=== PATIENT | male | born 1990 | race Caucasian/White ===

== ENCOUNTER 2020-03-19 09:25 | Outpatient (NON) | payer OTHER, SELFPAY ==
[2020-03-20 01:35] LABS: SARS-CoV-2 RNA PCR Negative
== END 2020-03-19 09:26 ==
PROVIDERS: Visit Provider Physician Assistant
DX: Z20.828 Contact with and (suspected) exposure to other viral communicable diseases (principal); R50.9 Fever, unspecified
CPT/HCPCS: 87635; C9803; U0003

== ENCOUNTER 2020-09-28 09:01 | Outpatient (CLI) | payer BC, SELFPAY | END 2020-09-28 09:02 | disposition home or self-care (01) | LOC: ANHCOVIDVC 09:01 | PROVIDERS: PCP Family Medicine | DX: Z23 Encounter for immunization (principal) | CPT/HCPCS: 0001A; 91300 ==

== ENCOUNTER 2020-10-19 09:00 | Outpatient (CLI) | payer BC, SELFPAY | END 2020-10-19 09:01 | disposition home or self-care (01) | LOC: ANHCOVIDVC 09:01 | PROVIDERS: PCP Family Medicine | DX: Z23 Encounter for immunization (principal) | CPT/HCPCS: 0002A; 91300 ==

== ENCOUNTER → 2021-09-14 07:05 | Outpatient (CLI) | payer BC, SELFPAY ==
--- NOTE | ~2021-09-14 | XR_ITS ---
EXAMINATION: XR chest 2V EXAM DATE: 09/14/2021 07:28 INDICATION: R50.9 - Fever, unspecified. Central posterior T-sp pain, level of scapula, no trauma, co ugh and fever x months. TECHNIQUE: Frontal and lateral projections of the chest obtained and reviewed. Comparison is made to prior examination from 06/24/2015. FINDINGS: The lungs are clear. There are no pleural effusions. The cardiomediastinal silhouette is within normal limits. There is no pneumothorax suspected. The bones and soft tissues are unremarkab le. IMPRESSION: Unremarkable chest x-ray exam. Reviewed, dictated and finalized at location B.
--- NOTE | ~2021-09-14 | XR_ITS ---
EXAMINATION: XR thoracic spine 2V EXAM DATE: 09/14/2021 07:28 INDICATION: M54.6 - Pain in thoracic spine . TECHNIQUE: Frontal and lateral projections of the thoracic spine as well as lateral swimmers projecti on of the upper thoracic spine for interpretation. Comparison is made to prior examination from . FINDINGS: TECHNIQUE: Frontal and lateral projections of the thoracic spine as well as lateral swimmers projecti on of the upper thoracic spine for interpretation. Comparison is made to prior examination from . FINDINGS: Minimal upper thoracic levoscoliosis. The vertebral bodies are aligned in the AP dimensio n. Vertebral body and disc heights are well-maintained. There are no acute fractures identified. Ther e are no bony erosions identified. IMPRESSION: Minimal upper thoracic levoscoliosis. Otherwise unremarkable exam. Reviewed, dictated and finalized at location B.
== END ==
PROVIDERS: PCP Family Medicine; Visit Provider Family Medicine
DX: R50.9 Fever, unspecified (principal); R05.9 Cough, unspecified; M54.6 Pain in thoracic spine
CPT/HCPCS: 71046; 72070

== ENCOUNTER → 2021-09-20 14:50 | Outpatient (CLI) | payer BC, SELFPAY ==
--- NOTE | ~2021-09-20 | CT_ITS ---
EXAMINATION: CT sinus wo con DATE: 09/20/2021 15:07 INDICATION: Fever. Leukocytosis. Cough. TECHNIQUE: Computed tomography (CT) of the paranasal sinuses was performed without intravenous contra st. Iterative reconstruction technique was employed. The dose-length product was 272.93 mGy-cm. COMPARISON: Head CT 08/08/2014 FINDINGS: The frontal, ethmoid, sphenoid, and maxillary sinuses are clear. There is rightward deviati on of the nasal septum. There are bilateral Davion cells. IMPRESSION: 1. Rightward deviation of the nasal septum. Reviewed, dictated and finalized at location A.
== END ==
PROVIDERS: PCP Family Medicine; Visit Provider Family Medicine
DX: R05.9 Cough, unspecified (principal); R50.9 Fever, unspecified; R53.83 Other fatigue; J34.2 Deviated nasal septum
CPT/HCPCS: 70486

== ENCOUNTER 2022-07-04 07:09 | Emergency (ER) | payer BC, SELFPAY ==
[2022-07-04] VITALS (8 sets, daily range): BP systolic 103–119; BP diastolic 72–81; PULSE 71–81; RESP 13–23; TEMP 36.6; O2SAT 98–100
--- NOTE | ~2022-07-04 | XR_ITS ---
EXAMINATION: XR chest 2V 07/04/2022 08:01 INDICATION: Right-sided chest pain. Cough and shortness of breath. PROCEDURE: 2 view chest COMPARISON: Comparison to multiple prior studies sequentially, with oldest reviewed study dated 11/2015. FINDINGS: The lungs are clear. There is mild chronic right apical pleural thickening/scarring. The ca rdiomediastinal silhouette is within normal limits. There are no pleural effusions. There is no pne umothorax suspected. IMPRESSION: 1: NO ACUTE CARDIOPULMONARY DISEASE. Reviewed, dictated and finalized at location A. [facility]
--- NOTE | 2022-07-04 07:30 | ECG_ITS ---
Measurements Intervals [place] Rate: 74 P: 49 OK: 182 QRS: 11 QRSD: 100 T: 23 QT: 357 QTc: 397 Interpretive Statements SINUS RHYTHM INCOMPLETE RIGHT BUNDLE BRANCH BLOCK BASELINE ARTIFACT- I, II, AVR, AVL BORDERLINE ECG NO PREVIOUS ECG AVAILABLE FOR COMPARISON Electronically Signed On 07-04-2022 8:00:23 [employer] by Regan Segundo D.O.
--- NOTE | 2022-07-04 07:31 | ED.CHESTPAIN ---
HPI - Chest Pain General Chief Complaint: Chest Pain Stated Complaint: chest pain with cough Time Seen by Provider: 07/04/22 07:25 History of Present Illness HPI narrative: Pt presents with right sided CP intermittent for the last week or so. Pt says it started after vaping cannabis and coughing. Pt states now when he coughs or moves in certain ways it happens and eventually goes away after a few minutes. Pt denies fever, SOB, nausea. Related Data Allergies Allergy/AdvReac Type Severity Reaction Status Date / Time No Known Allergies Allergy Verified 09/30/21 08:59 Review of Systems Review of Systems: All systems reviewed & are unremarkable except as noted in HPI and below PMFSH Past Medical History Medical History H/O cannabis abuse Surgical History Surgical History History of tonsillectomy Family History Family History Father Hypertension Grandparent Hypertension Family history of lung cancer Family history of malignant neoplasm of breast in first degree relative Social History Social History (Updated 09/30/21 @ 09:05 by Veronica Shaw CMA) Tobacco type: e-cigarettes/vaping Second hand tobacco smoke exposure: No Alcohol intake: never Substance use: never Substance use type: does not use Gender identity (if verbalized by the patient): Male Sexual Orientation (if Verbalized by the Patient): Straight or Heterosexual Spiritual care concerns: No Agree to blood products: Yes Exam Const: General: healthy appearing and no acute distress Orientation/consciousness: patient oriented x3 Limitations: no limitations Neck: Neck: normal visual inspection Chest: Chest palpation & inspection: normal inspection of the chest and tenderness (no reproducible tenderness) Resp: Effort & Inspection: normal respiratory effort Auscultation: clear to auscultation bilaterally Cardio: Rate: regular rate Rhythm: regular rhythm GI: Auscultation: normal bowel sounds Skin: General skin exam: normal color Rashes: no rashes Neuro: General: patient oriented x3 and moves all extremities Cranial nerves: Yes Nystagmus not present Speech: normal speech Extrem: General: normal to inspection and no clubbing, cyanosis or edema Psych: Mental Status: mental status grossly normal Affect: normal affect Attitude: cooperative Course Course Emergency Course: labs and cxr and ekg look fine likely musculoskelatal, will presribe naprosyn and flexeril and discharge Vital Signs Vital signs: Vital Signs Temperature 97.8 F 07/04/22 07:13 Pulse Rate 76 07/04/22 07:13 Respiratory Rate 18 07/04/22 07:13 Blood Pressure 119/80 07/04/22 07:13 Pulse Oximetry 99 07/04/22 07:13 Oxygen Delivery Room Air 07/04/22 07:13 Temperature 97.8 F 07/04/22 07:13 Pulse Rate 81 07/04/22 08:46 Respiratory Rate 14 07/04/22 08:46 Blood Pressure 114/76 07/04/22 08:46 Pulse Oximetry 100 07/04/22 08:46 Oxygen Delivery Room Air 07/04/22 07:24 MDM - Chest Pain MDM Narrative Medical decision making narrative: given onset with coughing and coughin and movement being precipitating factors it seems most likely to be musculoskeletal and less likely cardiac or lung, but will order ekg and labs and cxr to be sure. if work up normal can discharge on antiinflammatories and muscle relaxers. Lab Data 07/04/22 07:47 07/04/22 07:47 Labs: Lab Results 07/04/22 07/04/22 Range/Units 07:47 07:47 WBC 9.8 (4.5-10.0) K/mm3 RBC 4.71 (4.6-6.20) M/mm3 Hgb 13.1 L (14.0-18.0) g/dL Hct 40.5 L (42.0-52.0) % MCV 86.0 (80-100) fl MCH 27.8 (26-34) pg MCHC 32.3 (32-36) g/dl RDW 12.7 (11.5-14.5) % Plt Count 339 (150-375) k/mm3 MPV 10.7 H (7.4-10.4) fl Immature Gran % (Auto
[2022-07-04 07:55] LABS: Basophils Percent Auto 0.3 % (0.2-1.2); Eosinophils Percent Auto 0.2 % (0-4.4); Hematocrit 40.5 % (42.0-52.0); Hemoglobin 13.1 g/dL (14.0-18.0); Immature Granulocyte Absolute 0.03 K/mm3 (0.00-0.031); Immature Granulocyte Percent A 0.3 % (0-0.5); Lymphocytes Percent Auto 16.3 % (18.3-44.2); Mean Corpuscular HGB Conc 32.3 g/dl (32-36); Mean Corpuscular Hemoglobin 27.8 pg (26-34); Mean Platelet Volume 10.7 fl (7.4-10.4); Monocytes Absolute Auto 0.8 K/mm3 (0.1-0.6); Monocytes Percent Auto 7.7 % (2.6-8.5); Neutrophils Absolute Auto 7.4 K/mm3 (1.3-6.7); Neutrophils Percent Auto 75.2 % (45.5-73.1); Platelet Count Result 339 k/mm3 (150-375); Red Blood Count 4.71 M/mm3 (4.6-6.20); Red Cell Distribution Width 12.7 % (11.5-14.5); White Blood Count 9.8 K/mm3 (4.5-10.0)
[2022-07-04 08:04] LABS: Alanine Aminotransferase 24 U/L (6-50); Albumin Level 4.5 g/dL (3.5-5.1); Alkaline Phosphatase 72 U/L (38-126); Anion Gap 6 mmol/L (8-16); Aspartate Amino Transferase 28 U/L (17-59); Bilirubin,Total 0.6 mg/dL (0.2-1.3); Blood Urea Nitrogen 8 mg/dL (9-20); Calcium 9.2 mg/dL (8.4-10.2); Carbon Dioxide 31 mmol/L (22-30); Chloride 105 mmol/L (98-107); Estimated CRCL calculation 112 ml/min; Estimated Glomerular Filt Rate > 60; Glucose 93 mg/dL (65-110); Potassium 4.3 mmol/L (3.4-5.0); Sodium 142 mmol/L (137-145)
[2022-07-04 08:15] LABS: Troponin I < 0.012 ng/mL (0.000-0.034)
== END 2022-07-04 09:08 | disposition home or self-care (01) ==
PROVIDERS: Emergency Provider Emergency Medicine; PCP Family Medicine
DX: R07.89 Other chest pain (principal); F17.290 Nicotine dependence, other tobacco product, uncomplicated; I45.10 Unspecified right bundle-branch block
CPT/HCPCS: 36415; 71046; 80053; 84484; 85025; 93005; 99284